=== PATIENT | female | born 1960 | race Caucasian/White ===

== ENCOUNTER → 2017-02-13 | Outpatient (CLI) | payer OTHER | LOC: US 15:00 | DX: R80.9 Proteinuria, unspecified (principal) ==

== ENCOUNTER → 2017-04-13 | Outpatient (CLI) | payer OTHER | LOC: RAD 16:42 | DX: M25.561 Pain in right knee (principal); M25.512 Pain in left shoulder; M75.32 Calcific tendinitis of left shoulder; M19.012 Primary osteoarthritis, left shoulder | CPT/HCPCS: 73030; 73564 ==

== ENCOUNTER → 2022-04-19 | Outpatient (CLI) | payer OTHER ==
[2022-04-19 09:45] LABS: HEMOGLOBIN 13.2 gm/dl (12.3-15.3); RED BLOOD COUNT 4.68 M/UL (4.00-5.10); WHITE BLOOD COUNT 5.9 K/UL (4.5-11.0)
[2022-04-19 10:05] LABS: BUN/CREATININE RATIO 24 (0-10)
[2022-04-20 07:12] LABS: VITAMIN D, 25-HYDROXY 22.1 ng/mL (30.0-100.0)
[2022-04-20 10:18] LABS: CREATININE, URINE 105.8 mg/dL (Not Estab.)
[2022-04-20 12:11] LABS: RHEUMATOID ARTHRITIS FACTOR 11.1 IU/mL (<14.0)
== END ==
LOC: LAB 08:59
PROVIDERS: Internal Medicine
DX: E11.9 Type 2 diabetes mellitus without complications (principal); R53.83 Other fatigue; E78.5 Hyperlipidemia, unspecified; I10 Essential (primary) hypertension; M25.50 Pain in unspecified joint; Z51.81 Encounter for therapeutic drug level monitoring; K76.0 Fatty (change of) liver, not elsewhere classified
CPT/HCPCS: 36415; 80053; 80061; 82043; 82105; 82550; 82570; 82607; 82746; 83036; 84439; 84443; 84550; 85025; 85610; 85652; 85730; 86038; 86140; 86200; 86431